=== PATIENT | female | born 1950 | race American Indian/Alaskan Native ===

== ENCOUNTER 2017-11-06 08:48 | Outpatient (CLI) | payer MEDICARE ==
--- NOTE | 2017-11-07 13:10 | Magnetic Resonance Report ---
BILATERAL BREAST MRI WITHOUT AND WITH CONTRAST: 11/06/17 08:48:00 CLINICAL: High risk for breast cancer with a personal history of ADH, LCIS and ALH. Status post right partial mastectomy in 2004 with findings of ADH. More recently she had a left stereotactic biopsy 09/15/15 with benign pathology. She has completed five years of tamoxifen and is currently taking Evista. COMPARISON:08/22/17 bilateral mammogram.. TECHNIQUE: Axial 1.0-mm T1 without, axial high resolution 2.0-mm T2 and axial 1.0-mm dynamic Vibrant high-resolution postcontrast T1 fat saturation sequences on a 1.5 Katie magnet. The examination was performed with an 8 channel dedicated [place] breast coil. Post processing with CAD and subtraction was performed on an [employer] [facility] workstation. 20 cc of Multihance was injected without incident for the contrast portion of the exam. Consent was obtained prior to the administration of the contrast. FINDINGS: Right: Minimal background parenchymal enhancement. The right breast is smaller than the left. No mass or suspicious enhancement. No suspicious right sided lymph nodes. Left: Minimal background parenchymal enhancement. No suspicious mass or suspicious enhancement. A nonenhancing oval mildly irregular 1 cm mass at 9:30 o'clock approximately 9 cm from the nipple correlates with a heavily calcified mass on the mammogram. No suspicious left-sided lymph nodes. IMPRESSION: 1. Negative study status post right partial mastectomy. 2. A 1 cm left benign fibroadenoma at 9:30 o'clock. 3. Recommend routine mammographic screening and periodic breast MRI. BI-RADS 2 - - Benign
== END 2017-11-06 08:49 | disposition home or self-care (01) ==
LOC: SPVIMAG 08:48
PROVIDERS: ATTEND Surgery
DX: D24.2 Benign neoplasm of left breast (principal); Z90.11 Acquired absence of right breast and nipple
CPT/HCPCS: A9577; C8908; 77059

== ENCOUNTER 2018-11-06 09:30 | Outpatient (CLI) | payer MEDICARE ==
--- NOTE | 2018-11-06 13:38 | Magnetic Resonance Report ---
BILATERAL BREAST MRI WITHOUT AND WITH CONTRAST: 11/06/18 09:30:00 CLINICAL: Risk for breast cancer with personal history of ADH, LCIS and ALH. She underwent a partial right mastectomy in 2004 with no findings of malignancy the findings of ADH, LCIS and ALH. She completed 5 years of tamoxifen and is currently taking Evista. COMPARISON:11/06/17. TECHNIQUE: Axial 1.0-mm T1 without, axial high resolution 2.0-mm T2 and axial 1.0-mm dynamic Vibrant high-resolution postcontrast T1 fat saturation sequences on a 1.5 Katie magnet. The examination was performed with an 8 channel dedicated [place] breast coil. Post processing with CAD and subtraction was performed on an [employer] workstation. 19.0 cc of Multihance was injected without incident for the contrast portion of the exam. Consent was obtained prior to the administration of the contrast. FINDINGS: Right: Mild background parenchymal enhancement. No mass or suspicious enhancement. No suspicious lymph nodes. Left: Mild background parenchymal enhancement. A stable 1 cm nonenhancing oval mass at 9:30 o'clock 9 cm from the nipple. It correlates with a heavily calcified mass on mammogram. No other mass and no suspicious enhancement. No suspicious lymph nodes. IMPRESSION: Negative study with no suspicious findings. BI-RADS 2 - - Benign
== END 2018-11-06 09:31 | disposition home or self-care (01) ==
LOC: SPVIMAG 09:30
PROVIDERS: ATTEND Surgery
DX: D24.1 Benign neoplasm of right breast (principal)
CPT/HCPCS: A9577; C8908; 77049

== ENCOUNTER 2020-09-01 09:31 | Outpatient (CLI) | payer MEDICARE ==
--- NOTE | 2020-09-01 13:20 | Mammography Report ---
BILATERAL DIGITAL SCREENING MAMMOGRAM WITH CAD HISTORY: Screening mammogram. TECHNIQUE: Routine digital mammographic imaging performed. This examination was interpreted with bernard zambrano benefit of Computer-aided Detection analysis. COMPARISON: 08/27/2019, 08/22/2018, 08/14/2017. FINDINGS: Breast Density: scattered fibroglandular appearance of the breast tissue. Digital CC and MLO views demonstrate no mammographic evidence of malignancy. Stable mild postsurgica l changes in the right anterior breast. IMPRESSION: No mammographic evidence of malignancy. If the clinical examination remains stable, recommend bilate ral mammogram in approximately one year. BIRADS 2: Benign Finding(s). FURTHER INFORMATION: According to the [employer], yearly mammograms are recommend ed starting at age 40 and continuing as long as a woman is in good health. Clinical Breast Exams shou ld be part of a periodic health exam-about every 3 years for women in their 20s and 30s and every yea r for women 40 and over. Breast self exam is an option for women starting in their 20s. Any breast ch dominga noted on a breast self exam should be reported promptly to the patient's healthcare provider. Br east MRI is recommended for women with an approximately 20-25% or greater lifetime risk of breast can cer, including women with a strong family history of breast or ovarian cancer and women who have been treated for Hodgkin's disease. A negative Mammography report should not discourage follow up or biopsy of a clinically significant f inding and/or abnormality. Dense breast tissue may obscure small neoplasms. The patient will be entered into a reminder system with a target due date for the next screening mamm ogram. Signer Name: Cameron Hopkins MD Signed: 09/01/2020 1:16 PM Workstation Name: [id number]
== END 2020-09-01 09:32 | disposition home or self-care (01) ==
LOC: SPVWC 09:31
PROVIDERS: ATTEND Surgery
DX: Z12.31 Encounter for screening mammogram for malignant neoplasm of breast (principal); N64.89 Other specified disorders of breast
CPT/HCPCS: 77067

== ENCOUNTER 2021-09-06 11:08 | Outpatient (CLI) | payer MEDICARE ==
--- NOTE | 2021-09-06 16:01 | Mammography Report ---
DIGITAL SCREENING MAMMOGRAM WITH CAD, 09/06/2021 CLINICAL INFORMATION / INDICATION: Routine screening mammography. SCREENING MAMMO Z12.31 TECHNIQUE: Digital bilateral 2D mammography was obtained in the craniocaudal and mediolateral obliqu e projections. This examination was interpreted with the benefit of Computer-Aided Detection analysis . COMPARISON: 07/29/2014 through 09/01/2020. FINDINGS: Breast Density: There are scattered areas of fibroglandular density. No dominant mass or suspicious calcifications in either breast. Right breast scarring is stable. Benign-appearing nodularity and calcifications in the left breast ar e again noted. There is a left biopsy clip. No new abnormality is seen. IMPRESSION: No mammographic evidence of malignancy. Follow up recommendation: Routine yearly BI-RADS Category 2: BENIGN. A "normal" or negative report should not discourage follow up or biopsy of a clinically significant f inding. A written summary of these findings will be mailed to the patient. The patient will be entered into a mammography reporting system which will generate a reminder letter for the patient's next appointmen t at the appropriate interval. The [employer] recommends yearly mammograms starting at age 40 and continuing as l aster as a woman is in good health. Breast MRI is recommended for women with an approximate 20-25% or greater lifetime risk of breast cancer, including women with a strong family history of breast or ova juan jose cancer or who have been treated for Hodgkin's disease. Signer Name: Fabián Mandel MD Signed: 09/06/2021 3:56 PM Workstation Name: [employer]
== END 2021-09-06 11:09 | disposition home or self-care (01) ==
LOC: SPVWC 11:08
PROVIDERS: ATTEND Surgery
DX: Z12.31 Encounter for screening mammogram for malignant neoplasm of breast (principal); N64.89 Other specified disorders of breast
CPT/HCPCS: 77067